=== PATIENT | male | born 1965 | race Caucasian/White ===

== ENCOUNTER 2016-07-19 07:05 | Day surgery (SDC) ==
[2016-07-17 15:35] LABS: HEMATOCRIT 41.8 % (42.0-52.0); HEMOGLOBIN 14.4 g/dL (14.0-18.0); MCH 30.8 PG (27-31); MCHC 34.4 g/dL (33-37); MCV 89.5 FL (81-99); RBC 4.67 XMIL (4.7-6.1)
[2016-07-17 15:52] LABS: INR 0.95; PROTIME 10.1 Seconds (9.2-11.7); PTT 26.1 Seconds (22.0-36.0)
[2016-07-17 16:02] LABS: AGAP 12; BUN 9 mg/dL (8-22); CALCIUM 8.7 mg/dL (8.8-10.2); CHLORIDE 100 mmol/L (98-107); COSMO 275; POTASSIUM 4.5 mmol/L (3.5-5.1); SODIUM 138 mmol/L (136-145); TCO2 26 mmol/L (25-35)
[2016-07-17 16:03] LABS: ALBUMIN 4.1 g/dL (3.5-5.0); ALKALINE PHOSPHATASE 96 U/L (32-122); DIRECT BILIRUBIN < 0.20 mg/dL (0.00-0.20); GOT 28 U/L (10-34); GPT 29 U/L (10-44); TOTAL BILIRUBIN 0.16 mg/dL (0.20-1.00); TOTAL PROTEIN 7.4 g/dL (6.3-8.3)
--- NOTE | 2016-07-18 05:23 | EKG Report ---
Test Performed on : 07/17/2016 3:31:09 PM Test Reason : PAT Blood Pressure : / mmHG Vent. Rate : 070 BPM Atrial Rate : 070 BPM P-R Int : 172 ms QRS Dur : 084 ms QT Int : 396 ms P-R-T Axes : 058 -11 046 degrees QTc Int : 427 ms Normal sinus rhythm. Leftward axis not deviated Poor R-wave progression V1-V2 likely lead placement T wave inversion in in V1 - normal variant? Normal ECG No previous ECGs available Confirmed by Sushil Vigil DO ([id number]) on 07/21/2016 3:34:56 PM
[2016-07-19] MEDS ORDERED: LR 1,000 ML ONE (07:14)
[2016-07-19] MEDS ORDERED: PEPCID ONE (07:14)
[2016-07-19] MEDS ORDERED: REGLAN ONE (07:14)
[2016-07-19] MEDS ORDERED: KEFZOL 2 GM/D5W 50 ML ONE (07:14)
[2016-07-19] MEDS ORDERED: SENSORCAINE 0.25%/EPI 1:200,000 ONE (08:44)
[2016-07-19] MEDS ORDERED: XYLOCAINE 1% ONE (08:45)
[2016-07-19] MEDS ORDERED: NORCO-10 ONE (11:17)
[2016-07-19 11:47] VITALS: BP 150/95
[2016-07-19] MEDS ORDERED: FENTANYL ONE (12:08)
[2016-07-19] MEDS ORDERED: DIPRIVAN 1% ONE (12:09)
[2016-07-19] MEDS ORDERED: NEOSTIGMINE ONE (13:39)
[2016-07-19] MEDS ORDERED: TORADOL ONE (13:39)
[2016-07-19] MEDS ORDERED: ZOFRAN ONE (13:39)
[2016-07-19] MEDS ORDERED: ROBINUL ONE (13:40)
[2016-07-19] MEDS ORDERED: NORCURON ONE (13:40)
[2016-07-19] MEDS ORDERED: QUELICIN (DOSE) ONE (13:40)
[2016-07-19] MEDS ORDERED: XYLOCAINE-MPF 2% ONE (13:40)
[2016-07-19] MEDS ORDERED: DECADRON ONE (13:40)
[2016-07-19] MEDS ORDERED: VERSED ONE (14:01)
--- NOTE | 2016-07-19 15:05 | OPERATIVE NOTE ---
PROCEDURE DATE: 07/19/2016 PREOPERATIVE DIAGNOSES: 1. Incarcerated right direct inguinal hernia. 2. Incarcerated umbilical hernia. POSTOPERATIVE DIAGNOSES: 1. Incarcerated right direct inguinal hernia. 2. Incarcerated umbilical hernia. PROCEDURES PERFORMED: 1. Open repair of incarcerated right direct inguinal hernia with mesh. 2. Open primary repair of incarcerated umbilical hernia. SURGEON: Ryan Spence MD FARM OPERATIONS MANAGER: None. ANESTHESIA: General endotracheal. INTRAOPERATIVE FINDINGS: The defect in the inguinal region was a large defect, at least 3 cm. The defect in the umbilical hernia was approximately 5 mm. COMPLICATIONS: None at time of dictation. ESTIMATED BLOOD LOSS: 10 mL. SPECIMENS: Hernia sac. HISTORY: The patient is a 50-year-old male, presenting with symptomatic right inguinal hernia and umbilical hernia. He wanted both these repaired. The risks, benefits, and alternatives were discussed. He voiced understanding and wished to proceed with the procedure. DESCRIPTION OF PROCEDURE: After informed consent was obtained, the patient was brought to the operating theatre, transferred to the operating table, and placed in supine position. General orotracheal anesthesia was then performed without complication. A formal time-out was then performed, confirming patient, date, and procedure. All were in agreement. At that time, attention was turned to the right groin, which was previously marked, confirmed, and identified with the patient in preoperative holding. We elected to perform the inguinal hernia 1st. We marked the landmarks, pubic tubercle and anterior superior iliac spine. We made an incision between the 2 of these. We carried it down through the subcutaneous tissue to the external oblique aponeurosis, which we opened along its fibers to enter into the inguinal canal. We then dissected out the cord structures and placed a Ezio around them. I was able to identify a direct inguinal hernia. I it out from the surrounding tissue and reduced it into the abdomen after taking down a significant amount of scar tissue. Given the large defect, we elected to do a plug and patch technique. We placed a large plug in the defect and then placed the patch on top of it. We secured the patch in place along the pubic tubercle, the shelving edge, and transversalis fascia. We recreated the inguinal ring with the patch that was of sufficient size to accommodate the cord structures. We then irrigated the area copiously. We closed the external oblique aponeurosis and then closed the skin in layers. We did the angle ilioinguinal nerve block during this procedure also. I did not identify the ilioinguinal nerve during the procedure, but we paid careful attention to watch for it during every stitch. We then turned our attention to the umbilical incision and the umbilical hernia. We made a curvilinear infraumbilical incision and carried it down through the subcutaneous tissue. We then circumferentially dissected out the umbilical hernia and it from the umbilical skin. We were unable to reduce the large amount of incarcerated umbilical defect. Therefore, we transected them and they were all preperitoneal fat. We passed this off to pathology. The defect itself measured 5 mm. It was amenable to primary closure. We did this with interrupted 0 Tycron sutures with good results. We irrigated out this area closely. We then closed it in layers, recreating the umbilicus with 3-0 Vicryl and 4-0 Monocryl. The patient tolerated the procedure well and had a sterile dressing and abdominal binder applied.
== END 2016-07-19 11:55 | disposition home or self-care (01) ==
LOC: OPS 07:05
PROVIDERS: ATTEND Surgery
DX: K40.90 Unilateral inguinal hernia, without obstruction or gangrene, not specified as recurrent (principal); K42.9 Umbilical hernia without obstruction or gangrene; M19.90 Unspecified osteoarthritis, unspecified site; Z96.651 Presence of right artificial knee joint; F17.210 Nicotine dependence, cigarettes, uncomplicated
CPT/HCPCS: 80048; 80076; 85027; 85610; 85730; 88302; 93005; 93010; J0330; J0690; J1100; J1885; J2250; J2405; J3010; J7120; J2710